=== PATIENT | male | born 1945 | race Caucasian/White ===

== ENCOUNTER → 2025-08-10 | Day surgery (SDC) | payer MEDICARE ==
[2025-07-30 14:26] VITALS: BMI 30.7
[~2025-08-10] MED LIST: Bupivacaine/Epinephrine 0.25% 30 ML VIAL ONE; CEFAZOLIN 2 GM VIAL ONE; HYDROcodone/Acetaminophen 5/325 mg Tablet ONE; Lidocaine 1% PF 5 ML VIAL ONE; Ondansetron PF 4 MG/2 ML Vial ONE; PROPOFOL 40 ML ONE
[2025-08-10 08:31] LABS: Anion Gap 12 mmol/L (10-20); BUN (Urea Nitrogen) 12 mg/dL (8.4-25.7); Calc. Creatinine Clearance 107 mL/min (70-130); Calcium 9.2 mg/dL (7.8-10.44); Carbon Dioxide 26 mmol/L (23-31); Chloride 100 mmol/L (98-107); Glucose 100 mg/dL (83-110); Potassium 4.3 mmol/L (3.5-5.1); Sodium 134 mmol/L (136-145)
== END ==
LOC: CSHSDC 07:25
PROVIDERS: ATTEND Specialist
PROC: 07B60ZX Excision of Left Axillary Lymphatic, Open Approach, Diagnostic (ICD-10-PCS; principal; 2025-08-10)
DX: C77.3 Secondary and unspecified malignant neoplasm of axilla and upper limb lymph nodes (principal); C43.62 Malignant melanoma of left upper limb, including shoulder; F41.9 Anxiety disorder, unspecified; Z79.899 Other long term (current) drug therapy
CPT/HCPCS: 38525; 38900; 71045; 78195; 80048; 93005; A9541; J1100; J2405; J2704; J3010; Q9968; 36415; 88307; 88341; 88342; 93010